=== PATIENT | male | born 1965 | race Caucasian/White ===

== ENCOUNTER 2018-09-05 15:04 | Emergency (ER) | payer OTHER ==
[~2018-09-05] VITALS: Ht 177.8 cm; Wt 109.0 kg
[2018-09-05] MEDS ORDERED: HYDR25TA PO (16:32)
[2018-09-05 17:06] LABS: BASOPHILS % (AUTO) 0.6 % (0.0-2.0); EOSINOPHILS % (AUTO) 1.1 % (1.0-6.0); HEMATOCRIT 47.5 % (41-53); HEMOGLOBIN 16.7 g/dL (13.5-17.5); LYMPHOCYTES # (AUTO) 2.3 K/uL (1.0-4.8); LYMPHOCYTES % (AUTO) 30.9 % (22.0-44.0); MEAN CORPUSCULAR HEMOGLOBIN 35.4 pg (26.0-34.0); MEAN CORPUSCULAR HGB CONC 35.2 G/dL (31.0-37.0); MEAN CORPUSCULAR VOLUME 101 fL (80-100); MONOCYTES # (AUTO) 0.7 K/uL (0.1-1.0); NEUTROPHILS # (AUTO) 4.2 K/uL (1.8-7.7); NEUTROPHILS % (AUTO) 57.4 % (40.0-70.0); PLATELET COUNT (AUTO) 128 K/uL (150-450); RED BLOOD CELL COUNT(AUTO) 4.72 MIL/uL (4.50-5.90); RED CELL DISTRIBUTION WIDTH 17.1 % (11.5-14.5)
[2018-09-05 17:24] LABS: ALANINE AMINOTRANSFERASE 77 U/L (12-78); ALBUMIN 3.3 g/dL (3.4-5.0); ALKALINE PHOSPHATASE 205 U/L (46-116); ANION GAP 13 mmol/L (8-16); ASPARTATE AMINOTRANSFERASE 103 U/L (15-37); CALCIUM, TOTAL 9.2 mg/dL (8.8-10.5); CARBON DIOXIDE 26 mmol/L (22-29); CHLORIDE 103 mmol/L (98-107); CREATININE 0.87 mg/dL (0.60-1.30); GLOMERULAR FILTR. RATE CALC > 60 mL/min (>60); GLUCOSE,RANDOM 160 mg/dL (70-110); SODIUM SERUM 142 mmol/L (136-145); TOTAL PROTEIN, SERUM 8.4 g/dL (6.4-8.2); UREA NITROGEN, BLOOD 4 mg/dL (7-18)
[2018-09-05 17:26] LABS: POTASSIUM 2.9 mmol/L (3.5-5.1)
[2018-09-05 19:17] VITALS: BP 138/86
== END 2018-09-05 19:32 | disposition home or self-care (01) ==
LOC: EMS 15:05
DX: F32.9 Major depressive disorder, single episode, unspecified (principal); R11.2 Nausea with vomiting, unspecified; I10 Essential (primary) hypertension
CPT/HCPCS: 36415; 80053; 85025; 99283; G0480

== ENCOUNTER 2019-10-29 00:27 | Inpatient (IN) | payer OTHER ==
[~2019-10-29] VITALS: Ht 177.8 cm; Wt 95.7 kg
[2019-10-29] MEDS ORDERED: SODIUM CHLORIDE 0.9% 1,000 ML IV ONE (01:15)
[2019-10-29 01:28] LABS: BASOPHILS % (AUTO) 1.1 % (0.0-2.0); EOSINOPHILS % (AUTO) 2.7 % (1.0-6.0); LYMPHOCYTES # (AUTO) 2.7 K/uL (1.0-4.8); LYMPHOCYTES % (AUTO) 35.9 % (22.0-44.0); MEAN CORPUSCULAR HGB CONC 33.5 G/dL (31.0-37.0); MEAN CORPUSCULAR VOLUME 99 fL (80-100); MONOCYTES # (AUTO) 0.5 K/uL (0.1-1.0); MONOCYTES % (AUTO) 7.3 % (2.0-9.0); NEUTROPHILS # (AUTO) 3.9 K/uL (1.8-7.7); PLATELET COUNT (AUTO) 159 K/uL (150-450); RED BLOOD CELL COUNT(AUTO) 5.85 MIL/uL (4.50-5.90); RED CELL DISTRIBUTION WIDTH 19.1 % (11.5-14.5)
[2019-10-29 01:43] LABS: HEMATOCRIT 57.7 % (41-53); HEMOGLOBIN 19.3 g/dL (13.5-17.5)
[2019-10-29 01:46] LABS: ALANINE AMINOTRANSFERASE 23 U/L (12-78); ALBUMIN 3.8 g/dL (3.4-5.0); ALKALINE PHOSPHATASE 148 U/L (46-116); AMMONIA 96 umol/L (11-32); ANION GAP 18 mmol/L (8-16); ASPARTATE AMINOTRANSFERASE 20 U/L (15-37); CALCIUM, TOTAL 9.3 mg/dL (8.8-10.5); CARBON DIOXIDE 19 mmol/L (22-29); CHLORIDE 100 mmol/L (98-107); CREATINE KINASE, TOTAL ONLY 71 U/L (39-308); GLOMERULAR FILTR. RATE CALC > 60 mL/min (>60); GLUCOSE,RANDOM 118 mg/dL (70-110); SODIUM SERUM 137 mmol/L (136-145); TOTAL PROTEIN, SERUM 8.8 g/dL (6.4-8.2); UREA NITROGEN, BLOOD 10 mg/dL (7-18)
[2019-10-29 01:47] LABS: ACETAMINOPHEN < 2 mcg/mL (10-30); POTASSIUM 2.6 mmol/L (3.5-5.1); TROPONIN I < 0.02 ng/mL (0.00-0.05)
[2019-10-29 01:51] LABS: SALICYLATE 0.6 mg/dL (2.8-20.0)
[2019-10-29 02:02] LABS: AMPHET/METH SCREEN,URINE NEGATIVE (NEGATIVE); BARBITURATE SCREEN, URINE NEGATIVE (NEGATIVE); BENZODIAZEPINES SCREEN,URINE NEGATIVE (NEGATIVE); CANNABINOID SCREEN,URINE NEGATIVE (NEGATIVE); COCAINE SCREEN,URINE NEGATIVE (NEGATIVE); METHADONE SCREEN, URINE NEGATIVE (NEGATIVE); OPIATE SCREEN,URINE NEGATIVE (NEGATIVE); PHENCYCLIDINE SCREEN,URINE NEGATIVE (NEGATIVE)
[2019-10-29] MEDS: POTASSIUM CHL 10 MEQ/WATER 50 ML IV SCH ×5 (02:31→04:19)
[2019-10-29] MEDS ORDERED: ACETAMINOPHEN 325 MG TABLET PO PRN (04:00)
[2019-10-29] MEDS ORDERED: ONDANSETRON HCL 4 MG/2 ML VIAL IVP PRN ×2 (04:00→08:15)
[2019-10-29] MEDS ORDERED: 0.9% SODIUM CHLORIDE 10 ML SYRINGE IVP PRN ×2 (04:00→08:15)
[2019-10-29] MEDS ORDERED: SODIUM CHLORIDE 0.9% 1,000 ML IV SCH (08:15)
[2019-10-29] MEDS ORDERED: DOCUSATE SODIUM 100 MG CAPSULE PO SCH (09:00)
[2019-10-29 09:41] LABS: BASOPHILS % (AUTO) 0.8 % (0.0-2.0); EOSINOPHILS % (AUTO) 1.8 % (1.0-6.0); HEMATOCRIT 54.2 % (41-53); HEMOGLOBIN 18.2 g/dL (13.5-17.5); MEAN CORPUSCULAR HEMOGLOBIN 33.1 pg (26.0-34.0); MEAN CORPUSCULAR HGB CONC 33.5 G/dL (31.0-37.0); MEAN CORPUSCULAR VOLUME 99 fL (80-100); MONOCYTES # (AUTO) 0.4 K/uL (0.1-1.0); MONOCYTES % (AUTO) 7.1 % (2.0-9.0); NEUTROPHILS # (AUTO) 2.6 K/uL (1.8-7.7); NEUTROPHILS % (AUTO) 42.3 % (40.0-70.0); RED BLOOD CELL COUNT(AUTO) 5.49 MIL/uL (4.50-5.90); RED CELL DISTRIBUTION WIDTH 19.3 % (11.5-14.5)
[2019-10-29 09:51] LABS: CALCIUM, TOTAL 8.8 mg/dL (8.8-10.5); CREATININE 1.28 mg/dL (0.60-1.30); POTASSIUM 4.1 mmol/L (3.5-5.1)
[2019-10-29 09:51] LABS: PLATELET COUNT (AUTO) 142 K/uL (150-450)
[2019-10-29 10:09] VITALS: BP 127/97
[2019-10-29] MEDS: RIFAXIMIN 550 MG TABLET PO SCH ×2 (11:49→20:08)
[2019-10-29] MEDS: PANTOPRAZOLE SODIUM 40 MG DR TABLET PO SCH (11:49)
[2019-10-29] MEDS ORDERED: PNEUMOCOCCAL VACCINE POLYVALENT 0.5 ML VIAL [PPSV23] IM ONE (12:30)
[2019-10-29] MEDS: LACTULOSE 20 GM/30 ML SOLUTION UDCUP PO SCH ×3 (12:42→20:08)
[2019-10-29 12:53] VITALS: BP 122/82
[2019-10-29 13:40] LABS: BILIRUBIN,URINE NEGATIVE (NEGATIVE); GLUCOSE, URINE (UA) 100 mg/dL (NEGATIVE); KETONES,URINE NEGATIVE (NEGATIVE); LEUKOCYTE ESTERASE ,URINE NEGATIVE (NEGATIVE); NITRATE,URINE NEGATIVE (NEGATIVE); PROTEIN,URINE NEGATIVE (NEGATIVE)
[2019-10-29 13:47] LABS: APPEARANCE,URINE CLEAR (CLEAR); OCCULT BLOOD,URINE NEGATIVE (NEGATIVE)
[2019-10-29 13:48] LABS: BACTERIA,URINE None Seen /HPF (None Seen); RBC,URINE None Seen /HPF (0-2); WBC,URINE None Seen /HPF (0-5)
[2019-10-29] MEDS ORDERED: HEPARIN SODIUM,PORCINE 5,000 UNITS/ML VIAL SQ SCH (16:00)
[2019-10-29 16:01] VITALS: BP 127/75
[2019-10-29 17:15] VITALS: BP 127/75
[2019-10-29 17:35] VITALS: BP 121/88
[2019-10-29] MEDS: ACETAMINOPHEN 325 MG TABLET PO PRN (17:38)
[2019-10-29 20:03] VITALS: BP 123/88
[2019-10-30] VITALS (9 sets, daily range): BP systolic 120–171; BP diastolic 79–109
[2019-10-30] MEDS ORDERED: SODIUM CHLORIDE 0.9% 1,000 ML ONE (01:25)
[2019-10-30 07:56] LABS: BASOPHILS % (AUTO) 0.9 % (0.0-2.0); HEMATOCRIT 51.3 % (41-53); HEMOGLOBIN 17.1 g/dL (13.5-17.5); LYMPHOCYTES # (AUTO) 1.8 K/uL (1.0-4.8); LYMPHOCYTES % (AUTO) 25.7 % (22.0-44.0); MEAN CORPUSCULAR HEMOGLOBIN 33.1 pg (26.0-34.0); MEAN CORPUSCULAR HGB CONC 33.4 G/dL (31.0-37.0); MEAN CORPUSCULAR VOLUME 99 fL (80-100); MONOCYTES # (AUTO) 0.7 K/uL (0.1-1.0); MONOCYTES % (AUTO) 9.9 % (2.0-9.0); NEUTROPHILS # (AUTO) 4.4 K/uL (1.8-7.7); NEUTROPHILS % (AUTO) 61.5 % (40.0-70.0); RED BLOOD CELL COUNT(AUTO) 5.17 MIL/uL (4.50-5.90); RED CELL DISTRIBUTION WIDTH 18.8 % (11.5-14.5)
[2019-10-30 08:08] LABS: PLATELET COUNT (AUTO) 118 K/uL (150-450)
[2019-10-30] MEDS: LACTULOSE 20 GM/30 ML SOLUTION UDCUP PO SCH ×5 (08:12→20:58)
[2019-10-30] MEDS: PANTOPRAZOLE SODIUM 40 MG DR TABLET PO SCH (08:12)
[2019-10-30] MEDS: RIFAXIMIN 550 MG TABLET PO SCH ×2 (08:12→20:06)
[2019-10-30 08:37] LABS: ALANINE AMINOTRANSFERASE 23 U/L (12-78); ALBUMIN 3.2 g/dL (3.4-5.0); ALKALINE PHOSPHATASE 119 U/L (46-116); ANION GAP 6 mmol/L (8-16); ASPARTATE AMINOTRANSFERASE 26 U/L (15-37); BILIRUBIN,TOTAL 1.5 mg/dL (0.1-1.0); CALCIUM, TOTAL 8.6 mg/dL (8.8-10.5); CARBON DIOXIDE 28 mmol/L (22-29); CHLORIDE 106 mmol/L (98-107); FREE T4 (FREE THYROXINE) 0.92 ng/dL (0.76-1.46); GLOMERULAR FILTR. RATE CALC > 60 mL/min (>60); GLUCOSE,RANDOM 108 mg/dL (70-110); POTASSIUM 3.8 mmol/L (3.5-5.1); SODIUM SERUM 140 mmol/L (136-145); THYROID STIMULATING HORMONE 1.23 uIU/mL (0.36-3.74); TOTAL PROTEIN, SERUM 7.4 g/dL (6.4-8.2); UREA NITROGEN, BLOOD 8 mg/dL (7-18)
[2019-10-30] MEDS: ACETAMINOPHEN 325 MG TABLET PO PRN (20:06)
[2019-10-31] MEDS ORDERED: SODIUM CHLORIDE 0.9% 1,000 ML ONE (04:46)
[2019-10-31 05:38] VITALS: BP 156/110
[2019-10-31] MEDS: CITALOPRAM HYDROBROMIDE 20 MG TABLET PO SCH (08:15)
[2019-10-31] MEDS: RIFAXIMIN 550 MG TABLET PO SCH ×2 (08:15→20:47)
[2019-10-31] MEDS: PANTOPRAZOLE SODIUM 40 MG DR TABLET PO SCH (08:15)
[2019-10-31] MEDS: LACTULOSE 20 GM/30 ML SOLUTION UDCUP PO SCH ×5 (08:15→20:49)
[2019-10-31] MEDS: DOCUSATE SODIUM 100 MG CAPSULE PO PRN (08:15)
[2019-10-31 08:19] VITALS: BP 164/130
[2019-10-31 08:19] LABS: ALANINE AMINOTRANSFERASE 24 U/L (12-78); ALBUMIN 3.2 g/dL (3.4-5.0); ALKALINE PHOSPHATASE 121 U/L (46-116); ANION GAP 10 mmol/L (8-16); ASPARTATE AMINOTRANSFERASE 28 U/L (15-37); BILIRUBIN,TOTAL 1.3 mg/dL (0.1-1.0); CALCIUM, TOTAL 8.3 mg/dL (8.8-10.5); CARBON DIOXIDE 25 mmol/L (22-29); CHLORIDE 103 mmol/L (98-107); CREATININE 0.88 mg/dL (0.60-1.30); GLOMERULAR FILTR. RATE CALC > 60 mL/min (>60); GLUCOSE,RANDOM 96 mg/dL (70-110); POTASSIUM 3.1 mmol/L (3.5-5.1); SODIUM SERUM 138 mmol/L (136-145); TOTAL PROTEIN, SERUM 7.5 g/dL (6.4-8.2); UREA NITROGEN, BLOOD 7 mg/dL (7-18)
[2019-10-31 08:23] LABS: BASOPHILS % (AUTO) 1.2 % (0.0-2.0); HEMATOCRIT 48.8 % (41-53); LYMPHOCYTES # (AUTO) 1.5 K/uL (1.0-4.8); LYMPHOCYTES % (AUTO) 27.1 % (22.0-44.0); MEAN CORPUSCULAR HEMOGLOBIN 34.2 pg (26.0-34.0); MEAN CORPUSCULAR HGB CONC 34.7 G/dL (31.0-37.0); MEAN CORPUSCULAR VOLUME 98 fL (80-100); MONOCYTES # (AUTO) 0.5 K/uL (0.1-1.0); MONOCYTES % (AUTO) 8.5 % (2.0-9.0); NEUTROPHILS # (AUTO) 3.3 K/uL (1.8-7.7); NEUTROPHILS % (AUTO) 60.2 % (40.0-70.0); PLATELET COUNT (AUTO) 114 K/uL (150-450); RED BLOOD CELL COUNT(AUTO) 4.96 MIL/uL (4.50-5.90); RED CELL DISTRIBUTION WIDTH 18.8 % (11.5-14.5)
[2019-10-31 09:56] VITALS: BP 143/100
[2019-10-31 12:00] VITALS: BP 161/105
[2019-10-31] MEDS: LOSARTAN POTASSIUM 50 MG TABLET PO SCH (14:01)
[2019-10-31 16:00] VITALS: BP 154/110
[2019-10-31] MEDS ORDERED: POTASSIUM CHLORIDE 20 MEQ ER TABLET PO PRN (16:00)
[2019-10-31] MEDS ORDERED: POTASSIUM CHL 10 MEQ/WATER 50 ML IV PRN (16:00)
[2019-10-31 20:20] VITALS: BP 153/96
[2019-11-01 00:05] VITALS: BP 156/100
[2019-11-01 04:15] VITALS: BP 155/96
[2019-11-01] MEDS ORDERED: SODIUM CHLORIDE 0.9% 1,000 ML ONE (05:28)
[2019-11-01 07:29] LABS: BASOPHILS % (AUTO) 0.7 % (0.0-2.0); EOSINOPHILS % (AUTO) 3.4 % (1.0-6.0); HEMATOCRIT 49.9 % (41-53); HEMOGLOBIN 16.7 g/dL (13.5-17.5); LYMPHOCYTES # (AUTO) 1.8 K/uL (1.0-4.8); LYMPHOCYTES % (AUTO) 28.6 % (22.0-44.0); MEAN CORPUSCULAR HEMOGLOBIN 33.3 pg (26.0-34.0); MEAN CORPUSCULAR HGB CONC 33.4 G/dL (31.0-37.0); MEAN CORPUSCULAR VOLUME 100 fL (80-100); MONOCYTES # (AUTO) 0.6 K/uL (0.1-1.0); MONOCYTES % (AUTO) 8.9 % (2.0-9.0); NEUTROPHILS # (AUTO) 3.8 K/uL (1.8-7.7); NEUTROPHILS % (AUTO) 58.4 % (40.0-70.0); RED BLOOD CELL COUNT(AUTO) 5.01 MIL/uL (4.50-5.90); RED CELL DISTRIBUTION WIDTH 19.1 % (11.5-14.5)
[2019-11-01 07:40] LABS: ALANINE AMINOTRANSFERASE 25 U/L (12-78); ALBUMIN 3.2 g/dL (3.4-5.0); ALKALINE PHOSPHATASE 105 U/L (46-116); ANION GAP 8 mmol/L (8-16); ASPARTATE AMINOTRANSFERASE 26 U/L (15-37); BILIRUBIN,TOTAL 1.6 mg/dL (0.1-1.0); CALCIUM, TOTAL 8.9 mg/dL (8.8-10.5); CARBON DIOXIDE 26 mmol/L (22-29); CHLORIDE 101 mmol/L (98-107); GLOMERULAR FILTR. RATE CALC > 60 mL/min (>60); GLUCOSE,RANDOM 84 mg/dL (70-110); POTASSIUM 4.1 mmol/L (3.5-5.1); SODIUM SERUM 135 mmol/L (136-145); TOTAL PROTEIN, SERUM 7.5 g/dL (6.4-8.2); UREA NITROGEN, BLOOD 9 mg/dL (7-18)
[2019-11-01 07:45] LABS: PLATELET COUNT (AUTO) 101 K/uL (150-450)
[2019-11-01 08:30] VITALS: BP 154/100
[2019-11-01] MEDS: LACTULOSE 20 GM/30 ML SOLUTION UDCUP PO SCH ×3 (09:00→16:00)
[2019-11-01] MEDS: DOCUSATE SODIUM 100 MG CAPSULE PO PRN (09:57)
[2019-11-01] MEDS: RIFAXIMIN 550 MG TABLET PO SCH (09:57)
[2019-11-01] MEDS: CITALOPRAM HYDROBROMIDE 20 MG TABLET PO SCH (10:00)
[2019-11-01] MEDS: LOSARTAN POTASSIUM 50 MG TABLET PO SCH (10:00)
[2019-11-01] MEDS: PANTOPRAZOLE SODIUM 40 MG DR TABLET PO SCH (10:02)
[2019-11-01 12:04] VITALS: BP 152/108
[2019-11-01] MEDS ORDERED: CITA10TA68 PO (15:22)
[2019-11-01] MEDS ORDERED: LOSA-88 PO (15:25)
[2019-11-01] MEDS ORDERED: RIFAX550 PO (15:26)
[2019-11-01 16:30] VITALS: BP 151/101
[2019-11-01] MEDS ORDERED: AMLO5TAB9 PO (16:49)
[2019-11-01] MEDS ORDERED: CloNIDine HCL 0.1 MG TABLET PO ONE (19:15)
== END 2019-11-01 19:15 | DRG 918 ==
LOC: EMS 00:28 → 5S 05:30
PROVIDERS: ADMIT Internal Medicine; ATTEND Internal Medicine
DX: T50.992A Poisoning by other drugs, medicaments and biological substances, intentional self-harm, initial encounter (principal); F10.229 Alcohol dependence with intoxication, unspecified; Y90.8 Blood alcohol level of 240 mg/100 ml or more; I10 Essential (primary) hypertension; F32.9 Major depressive disorder, single episode, unspecified; E87.6 Hypokalemia; D75.1 Secondary polycythemia; Y92.89 Other specified places as the place of occurrence of the external cause
CPT/HCPCS: 51702; 70450; 72125; 76705; 80074; 83735; 84132; 84145; 84439; 84443; 87081; 93005; G0480; G0481; J3411; J3475; J3480; J3490; J7030

== ENCOUNTER 2019-11-01 15:38 | Inpatient (IN) | payer OTHER ==
[~2019-11-01 15:38] MED LIST: CITA10TA99 PO; LOSA-88 PO; RIFAX550 PO
[2019-11-01] MEDS ORDERED: AMLO5TAB9 PO (16:49)
[2019-11-01] MEDS ORDERED: LORazepam 2 MG TABLET PO PRN (18:00)
[2019-11-01] MEDS ORDERED: HALOPERIDOL 5 MG TABLET PO PRN (18:00)
[2019-11-01] MEDS ORDERED: PNEUMOCOCCAL VACCINE POLYVALENT 0.5 ML VIAL [PPSV23] IM ONE (20:15)
[2019-11-01] MEDS ORDERED: INFLUENZA VIRUS VACCINE QVS 2019-20 (3YR+)/PF 60 MCG/0.5 ML SYRINGE IM ONE (20:15)
[2019-11-01 21:10] VITALS: BP 159/129
[2019-11-01 21:28] VITALS: BP 140/117
[2019-11-01 22:00] VITALS: BP 130/116
[2019-11-01] MEDS: AmLODIPine BESYLATE 5 MG TABLET PO SCH (22:05)
[2019-11-01 22:30] VITALS: BP 128/88
[2019-11-01 23:08] VITALS: BP 135/72
[2019-11-02] MEDS ORDERED: PETROLATUM,WHITE 28 GM JELLY TP PRN (05:30)
[2019-11-02] MEDS ORDERED: BACITRACIN 28.4 GM OINTMENT TP PRN (05:30)
[2019-11-02] MEDS ORDERED: CloNIDine HCL 0.1 MG TABLET PO PRN (05:30)
[2019-11-02] MEDS ORDERED: ACETAMINOPHEN 325 MG TABLET PO PRN (05:30)
[2019-11-02] MEDS ORDERED: LOPERAMIDE HCL 2 MG CAPSULE PO PRN (05:30)
[2019-11-02] MEDS ORDERED: MAG HYDROX/AL HYDROX/SIMETH ES 30 ML SUSPENSION UDCUP PO PRN (05:30)
[2019-11-02] MEDS ORDERED: MAGNESIUM HYDROXIDE SUSPENSION 30 ML UDCUP PO PRN (05:30)
[2019-11-02] MEDS ORDERED: ONDANSETRON HCL 4 MG TABLET PO PRN (05:30)
[2019-11-02] MEDS ORDERED: ALBUTEROL SULFATE HFA 90 MCG/PUFF 8 GM INHALER IH PRN (05:30)
[2019-11-02] MEDS ORDERED: IBUPROFEN 600 MG TABLET PO PRN (05:30)
[2019-11-02] MEDS ORDERED: BENZOCAINE/MENTHOL LOZENGE MM PRN (05:30)
[2019-11-02 05:58] VITALS: BP 130/94
[2019-11-02 08:23] VITALS: BP 133/94
[2019-11-02] MEDS: OMEPRAZOLE 20 MG CAPSULE PO SCH (08:25)
[2019-11-02] MEDS: CITALOPRAM HYDROBROMIDE 20 MG TABLET PO SCH (08:25)
[2019-11-02] MEDS: AmLODIPine BESYLATE 5 MG TABLET PO SCH (08:25)
[2019-11-02] MEDS: DOCUSATE SODIUM 100 MG CAPSULE PO SCH (08:25)
[2019-11-02] MEDS: LOSARTAN POTASSIUM 50 MG TABLET PO SCH (08:26)
[2019-11-02] MEDS: RIFAXIMIN 550 MG TABLET PO SCH ×2 (08:26→16:16)
[2019-11-02 16:04] VITALS: BP 137/77
[2019-11-03 00:54] VITALS: BP 127/76
[2019-11-03] MEDS: AmLODIPine BESYLATE 5 MG TABLET PO SCH (08:05)
[2019-11-03] MEDS: DOCUSATE SODIUM 100 MG CAPSULE PO SCH (08:05)
[2019-11-03] MEDS: CITALOPRAM HYDROBROMIDE 20 MG TABLET PO SCH (08:06)
[2019-11-03] MEDS: LOSARTAN POTASSIUM 50 MG TABLET PO SCH (08:06)
[2019-11-03] MEDS: RIFAXIMIN 550 MG TABLET PO SCH ×2 (08:06→16:39)
[2019-11-03] MEDS: OMEPRAZOLE 20 MG CAPSULE PO SCH (08:06)
[2019-11-03 08:11] VITALS: BP 148/101
[2019-11-03 09:25] VITALS: BP 123/90
[2019-11-03 16:11] VITALS: BP 126/89
[2019-11-03] MEDS: ZOLPIDEM TARTRATE 10 MG TABLET PO PRN (21:13)
[2019-11-04 05:45] VITALS: BP 118/82
[2019-11-04 08:15] VITALS: BP 115/85
[2019-11-04] MEDS: RIFAXIMIN 550 MG TABLET PO SCH ×2 (08:21→16:45)
[2019-11-04] MEDS: AmLODIPine BESYLATE 5 MG TABLET PO SCH (08:21)
[2019-11-04] MEDS: DOCUSATE SODIUM 100 MG CAPSULE PO SCH (08:21)
[2019-11-04] MEDS: OMEPRAZOLE 20 MG CAPSULE PO SCH (08:21)
[2019-11-04] MEDS: LOSARTAN POTASSIUM 50 MG TABLET PO SCH (08:21)
[2019-11-04] MEDS: CITALOPRAM HYDROBROMIDE 20 MG TABLET PO SCH (08:21)
[2019-11-04 16:05] VITALS: BP 131/87
[2019-11-04] MEDS: ZOLPIDEM TARTRATE 10 MG TABLET PO PRN (22:04)
[2019-11-05 01:03] VITALS: BP 112/67
[2019-11-05] MEDS: LOSARTAN POTASSIUM 50 MG TABLET PO SCH (08:20)
[2019-11-05] MEDS: CITALOPRAM HYDROBROMIDE 20 MG TABLET PO SCH (08:20)
[2019-11-05] MEDS: RIFAXIMIN 550 MG TABLET PO SCH ×2 (08:20→16:20)
[2019-11-05] MEDS: AmLODIPine BESYLATE 5 MG TABLET PO SCH (08:20)
[2019-11-05] MEDS: OMEPRAZOLE 20 MG CAPSULE PO SCH (08:20)
[2019-11-05] MEDS: DOCUSATE SODIUM 100 MG CAPSULE PO SCH (08:20)
[2019-11-05 08:30] VITALS: BP 123/89
[2019-11-05 16:38] VITALS: BP 139/89
[2019-11-05] MEDS: ZOLPIDEM TARTRATE 10 MG TABLET PO PRN (20:23)
[2019-11-06 02:41] VITALS: BP 105/76
[2019-11-06 08:21] VITALS: BP 124/76
[2019-11-06] MEDS: OMEPRAZOLE 20 MG CAPSULE PO SCH (08:26)
[2019-11-06] MEDS: AmLODIPine BESYLATE 5 MG TABLET PO SCH (08:26)
[2019-11-06] MEDS: CITALOPRAM HYDROBROMIDE 20 MG TABLET PO SCH (08:26)
[2019-11-06] MEDS: LOSARTAN POTASSIUM 50 MG TABLET PO SCH (08:26)
[2019-11-06] MEDS: RIFAXIMIN 550 MG TABLET PO SCH ×2 (08:26→16:23)
[2019-11-06] MEDS: DOCUSATE SODIUM 100 MG CAPSULE PO SCH (08:27)
[2019-11-06] MEDS ORDERED: CITA-144 PO (14:32)
[2019-11-06 16:04] VITALS: BP 129/80
[2019-11-07 00:22] VITALS: BP 107/71
[2019-11-07] MEDS: OMEPRAZOLE 20 MG CAPSULE PO SCH (08:21)
[2019-11-07] MEDS: LOSARTAN POTASSIUM 50 MG TABLET PO SCH (08:21)
[2019-11-07] MEDS: FOLIC ACID 1 MG TABLET PO SCH (08:22)
[2019-11-07] MEDS: CITALOPRAM HYDROBROMIDE 20 MG TABLET PO SCH (08:22)
[2019-11-07] MEDS: AmLODIPine BESYLATE 5 MG TABLET PO SCH (08:22)
[2019-11-07] MEDS: DOCUSATE SODIUM 100 MG CAPSULE PO SCH (08:22)
[2019-11-07] MEDS: MULTIVITAMINS WITH MINERALS, THERAPEUTIC TABLET PO SCH (08:22)
[2019-11-07] MEDS: RIFAXIMIN 550 MG TABLET PO SCH ×2 (08:22→16:55)
[2019-11-07] MEDS: THIAMINE HCL 100 MG TABLET PO SCH (08:23)
[2019-11-07 08:47] VITALS: BP 134/86
[2019-11-07 16:04] VITALS: BP 121/85
[2019-11-08] VITALS: BP 116/76
[2019-11-08] MEDS: DOCUSATE SODIUM 100 MG CAPSULE PO SCH (08:30)
[2019-11-08] MEDS: OMEPRAZOLE 20 MG CAPSULE PO SCH (08:30)
[2019-11-08] MEDS: AmLODIPine BESYLATE 5 MG TABLET PO SCH (08:30)
[2019-11-08] MEDS: LOSARTAN POTASSIUM 50 MG TABLET PO SCH (08:30)
[2019-11-08] MEDS: THIAMINE HCL 100 MG TABLET PO SCH (08:30)
[2019-11-08] MEDS: FOLIC ACID 1 MG TABLET PO SCH (08:30)
[2019-11-08] MEDS: CITALOPRAM HYDROBROMIDE 20 MG TABLET PO SCH (08:30)
[2019-11-08] MEDS: MULTIVITAMINS WITH MINERALS, THERAPEUTIC TABLET PO SCH (08:30)
[2019-11-08] MEDS: RIFAXIMIN 550 MG TABLET PO SCH ×2 (08:30→16:24)
[2019-11-08 09:18] VITALS: BP 141/90
[2019-11-08 16:05] VITALS: BP 128/84
== END 2019-11-08 21:49 | disposition home or self-care (01) | DRG 881 ==
LOC: B2S 21:42
PROVIDERS: ADMIT Psychiatry & Neurology Psychiatry; ATTEND Psychiatry & Neurology Psychiatry
PROC: 3E02340 Introduction of Influenza Vaccine into Muscle, Percutaneous Approach (ICD-10-PCS; principal; 2019-11-02)
PROC: 3E0234Z Introduction of Serum, Toxoid and Vaccine into Muscle, Percutaneous Approach (ICD-10-PCS; 2019-11-02)
DX: F32.9 Major depressive disorder, single episode, unspecified (principal); R45.851 Suicidal ideations; Z23 Encounter for immunization; I10 Essential (primary) hypertension; K21.9 Gastro-esophageal reflux disease without esophagitis; K59.00 Constipation, unspecified; K70.10 Alcoholic hepatitis without ascites; F17.210 Nicotine dependence, cigarettes, uncomplicated
CPT/HCPCS: 87081; 90686; 90732